=== PATIENT | female | born 1990 | race Caucasian/White ===

== ENCOUNTER 2023-01-01 12:40 | Emergency (ER) | payer MEDICAID, OTHER ==
[2023-01-01] MEDS ORDERED: ACETAMINOPHEN 500 MG TAB (TYLENOL) PO STA (13:43)
[2023-01-01 13:48] LABS: BILIRUBIN,URINE NEGATIVE (NEGATIVE); CLARITY,URINE CLEAR; COLOR,URINE YELLOW; GLUCOSE, URINE (UA) NEGATIVE (NEGATIVE); KETONES,URINE NEGATIVE (NEGATIVE); LEUKOCYTE ESTERASE ,URINE NEGATIVE (NEGATIVE); NITRITE,URINE NEGATIVE (NEGATIVE); PH,URINE 6.5 (5-9); PROTEIN,URINE NEGATIVE (NEGATIVE)
[2023-01-01 13:49] LABS: BACTERIA,URINE MODERATE /HPF; YEAST,URINE FEW /HPF
--- NOTE | 2023-01-01 14:00 | ED Cough/URI ---
General Chief Complaint: COVID19 Suspect/Confirmed Stated Complaint: +COVID, 14WKS , PAIN Nursing Triage Note: Patient presents to the ED at 14wks gestation with c/o cough, congestion, chest wall pain, and abdominal cramping. Reports COVID+ 12/31/22 with symptom onset 12/30/22. States her chest hurts when she coughs or takes a deep breath. Has been using Tylenol las dose at 0500. Source: patient History of Present Illness Date Seen by Provider: Jan 01, 2023 Time Seen by Provider: 12:46 Initial Comments 32-year-old female presenting with complaints of testing positive for COVID y . She had symptoms starting on Monday the . She was around family members last weekend for celebrating . She is approximately 14 weeks G3, P1 SAB 1. She had taken Tylenol at 5 AM and it was helping some but because she was having coughing and body aches as well as pelvic cramping she came to the ER to be evaluated. She denies any vaginal bleeding or spotting. She has no pain with urination. She does have nasal congestion and drainage with her cough. She is taking vitamins for the but otherwise denies other medications and no chronic medical problems. Timing/Duration: getting worse (Since December 30) Severity/Quality: moderate, dry cough Prior Episodes/Possible Cause: no prior episodes Modifying Factors: Worse With Activity, Worse With Coughing Associated Symptoms: chest pain/soreness (With coughing), cough, fever/chills, headache, muscle aches, nasal congestion, nasal drainage, shortness of breath, sore throat Allergies and Home Medications Allergies Coded Allergies: No Known Drug Allergies (Unverified , 01/01/23) Patient Home Medication List Home Medication List Reviewed: Yes Review of Systems Review of Systems Constitutional: chills, fever (Subjective), malaise EENTM: nose congestion, throat pain; No ear discharge, No ear pain, No epistaxis Respiratory: cough; No phlegm; short of breath; No stridor, No wheezing Cardiovascular: chest pain (With coughing); No edema, No palpitations Gastrointestinal: No nausea, No vomiting Genitourinary: No dysuria, No frequency Expected Date of Delivery: Jun 26, 2023 Musculoskeletal: muscle pain (Generalized muscle aches and body pains) Skin: No change in color, No rash Psychiatric/Neurological: Headache Past [id number] Hx Patient Social History Tobacco Use?: No Use of E-Cig and/or Vaping dev: No Substance use?: No Alcohol Use?: No Pt feels they are or have been: No Immunizations Up To Date First/Initial COVID19 Vaccinat: DENIES Past Medical History Surgery/Hospitalization HX: 14wks gestation (Due date Jun 26 2023). COVID+; Appendectomy; ; Cholecysectomy; Tonsilectomy Expected Date of Delivery: Jun 26, 2023 Physical Exam Vital Signs - First Documented 01/01/23 12:59 Temp 35.8 Pulse 86 Resp 16 B/P (MAP) 108/66 (80) Pulse Ox 100 O2 Delivery Room Air Capillary Refill : Less Than 3 Seconds Height: '" Weight: lbs. oz. kg; BMI Method: General Appearance: WD/WN, no apparent distress HEENT: PERRL/EOMI, pharynx normal Neck: non-tender, full range of motion, supple, normal inspection Respiratory: chest non-tender, lungs clear, normal breath sounds, no respiratory distress, no accessory muscle use Cardiovascular: normal peripheral pulses, regular rate, rhythm Gastrointestinal: normal bowel sounds, soft, no pulsatile mass; No guarding, No rebound, No tenderness; other (Gravid uterus) Extremities: normal range of motion, non-tender, normal capillary refill Neurologic/Psychiatric: sys dir II-XII nml as tested, no motor/sensory deficits, alert, oriented x 3 Skin: normal color, warm/dry Progress/Results/Core Measures Suspected Sepsis SIRS Temperature: Pulse: 86 Respiratory Rate: 16 Blood Pressure 108 /66 Mean: 80 Results/Orders Lab Results Laboratory Tests Test 01/01/23 12:45 Range/Units Urine Color YELLOW Urine Clarity CLEAR Urine pH 6.5 5-9 Urine Specific [place] 1.020 1.016-1.022 Urine Protein NEGATIVE NEGATIVE Urine Glucose (UA) NEGATIVE NEGATIVE Urine Ketones NEGATIVE NEGATIVE Urine Nitrite NEGATIVE NEGATIVE Urine Bilirubin NEGATIVE NEGATIVE Urine Urobilinogen 0.2 < = 1.0 MG/DL Urine Leukocyte Esterase NEGATIVE NEGATIVE Urine RBC (Auto) 2+ H NEGATIVE Urine RBC 5-10 H /HPF Urine WBC 10-25 H /HPF Urine Squamous Epithelial Cells 2-5 /HPF Urine Crystals NONE /LPF Urine Bacteria MODERATE H /HPF Urine Casts NONE /LPF Urine Mucus LARGE H /LPF Urine Yeast FEW H /HPF Urine Culture Indicated YES My Orders Orders - PEGGY PRESLEY MD Acetaminophen Tablet (Tylenol Tablet) (01/01/23 13:43) Ua Culture If Indicated (01/01/23 13:43) Heart Tones (01/01/23 13:44) Urine Culture (01/01/23 12:45) Vital Signs/I&O 01/01/23 01/01/23 12:59 14:02 Temp 35.8 35.8 Pulse 86 86 Resp 16 16 B/P (MAP) 108/66 (80) 108/66 Pulse Ox 100 100 O2 Delivery Room Air Room Air Capillary Refill : Less Than 3 Seconds Blood Pressure Mean: 80 Progress Note : Progress Note Potential diagnosis of dehydration, incidental , COVID-19 infection, pneumonia, bronchitis, viral syndrome, UTI. Reassured patient that her oxygen saturation was satting 99 to 100% on room air. She was not having increased work of breathing or concerns for pneumonia. The heart tones were in the 140s and normal. She has had no vaginal bleeding or spotting which was very encouraging. The urinalysis did show some bacteria and a few yeast but she did not have nitrites, leukocyte esterase to indicate a UTI. With her not having UTI symptoms and being as well as not seeing leukocyte esterase or nitrites in the urine will defer antibiotics until culture results. If the culture shows that she needs antibiotics will contact her to get medication started. After my initial exam and visit with the patient I did call Dr. Swenson as she was the on-call provider for OB care from [facility]. I reviewed quickly with her about the patient presentation with positive COVID infection and approximately 14 weeks estimated gestational age. She was having 100% oxygen saturation on room air and was not working hard to breathe. Otherwise exam seems benign with consistent with her needing to drink more fluids. She agreed with symptomatic care and asked me to remind the patient to look at her approved list of medications she could use [id number] during . She could use plain Mucinex or plain Robitussin to help with cough and congestion. She may also use plain Benadryl or diphenhydramine to help with congestion. Cough drops and increasing her fluids. Use a humidifier or vaporizer at the bedside to help with cough and congestion. Check back with the clinic if having more concerns. I reviewed the recommendations with the patient from Dr. Swenson. She had no further questions. Given a note to quarantine at home for 5 days and wear a mask for 10 days. May return to work Monday but still continue to wear a mask. Check with clinic for continued concerns. Departure Impression Primary Impression: COVID-19 virus infection Additional Impressions: Upper respiratory tract infection due to COVID-19 virus Bacteriuria during in first trimester Disposition: HOME, SELF-CARE Condition: Stable Departure-Patient Inst. Decision time for Depature: 13:58 Referrals: FANNY SIMON APRN (PCP) Primary Care Physician LAURI SWENSON MD Patient Instructions: COVID-19 and ED, COVID-19 ED Add. Discharge Instructions: Stay well-hydrated and drink plenty of fluids. Try to keep your urine as light- colored as possible. The darker colored urine in the more hydration that you need. You may continue to use the acetaminophen to help with body aches and pain. [id number] if needed you could use plain Mucinex or plain Robitussin to help with cough and congestion. Benadryl would also be a medicine that would be safe to take during . Check back with Dr. Swenson and the clinic for continued concerns with your COVID infection during your . A culture is being done on your urine from today. If it shows that you need an antibiotic for a UTI then you will get a call in the next 2-3 days when the culture results are back. All discharge instructions reviewed with patient and/or family. Voiced understanding. Work/School Note: Work Release Form Date Seen in the Emergency Department: Jan 01, 2023 Return to Work: Jan 06, 2023 Restrictions: Return-No Fever (24hrs) Other Restrictions Listed Below: Wear mask x 10 days, quarantine for next 5 days PEGGY PRESLEY MD Jan 01, 2023 14:00
[2023-01-01 14:02] VITALS: BP 108/66
== END 2023-01-01 14:02 | disposition home or self-care (01) ==
LOC: ER FS 12:46
DX: O98.512 Other viral diseases complicating pregnancy, second trimester (principal); O23.42 Unspecified infection of urinary tract in pregnancy, second trimester; U07.1 COVID-19; J06.9 Acute upper respiratory infection, unspecified; R82.71 Bacteriuria; Z28.310 Unvaccinated for COVID-19; Z73.0 Burn-out; Z3A.14 14 weeks gestation of pregnancy
CPT/HCPCS: 81000; 87088